=== PATIENT | female | born 1985 | race Two or more races ===

== ENCOUNTER → 2018-01-27 | Outpatient (CLI) | payer BC ==
[2018-01-27 19:02] LABS: BASO # 0.1 10^3/uL (0.0-0.2); BASO % 0.7 % (0.0-1.0); EOS # 0.1 10^3/uL (0.0-0.50); EOS % 1.5 % (0.0-3.0); HEMOGLOBIN 14.2 g/dl (12.0-15.5); IMMATURE GRANULOCYTE % 0.2 % (0-3.0); LYMPH % 21.1 % (24.0-44.0); MEAN CORPUSCULAR HEMOGLOBIN 29.4 pg (27.0-33.0); MEAN CORPUSCULAR HGB CONC 33.8 g/dl (32.0-36.5); MONO # 0.7 10^3/uL (0.0-0.8); MONO % 7.4 % (0.0-5.0); NEUTROPHILS # 6.5 10^3/uL (1.8-7.7); NEUTROPHILS % 69.1 % (36.0-66.0); PLATELET COUNT, AUTOMATED 273 10^3/uL (150-450); RED BLOOD COUNT 4.83 10^6/uL (4.00-5.40); RED CELL DISTRIBUTION WIDTH 12.5 % (11.5-14.5); WHITE BLOOD COUNT 9.4 10^3/uL (4.0-10.0)
[2018-01-27 19:11] LABS: ESTIMATED AVERAGE GLUCOSE 94 MG/DL (60-110); HEMOGLOBIN A1c 4.9 %
[2018-01-27 19:16] LABS: GLUCOSE CHALLENGE TEST 1 HOUR 124 MG/DL (LESS THAN 140)
[2018-01-27 20:29] LABS: CHLAMYDIA DNA AMPLIFICATION NEGATIVE (NEGATIVE); GC DNA AMPLIFICATION NEGATIVE (NEGATIVE)
[2018-01-29 10:56] LABS: RUBELLA IgG QUALITATIVE IMMUNE (IMMUNE)
[2018-01-29 11:03] LABS: HBsAg Prenatal NEGATIVE (NEGATIVE)
[2018-01-29 11:29] LABS: HIV 1&2 SCREEN CENTAUR NEGATIVE (NEGATIVE)
[2018-01-29 11:29] LABS: HEPATITIS C VIRUS ABY INDEX 0.1 INDEX (<0.8)
== END ==
LOC: M WUC 08:53
DX: Z34.81 Encounter for supervision of other normal pregnancy, first trimester (principal); Z3A.01 Less than 8 weeks gestation of pregnancy

== ENCOUNTER → 2018-03-19 | Outpatient (REF) | payer BC | LOC: M LAB REF 13:16 | DX: Z34.81 Encounter for supervision of other normal pregnancy, first trimester (principal) | CPT/HCPCS: 87086 ==

== ENCOUNTER → 2018-05-02 | Outpatient (CLI) | payer BC | LOC: M RAD 12:12 | DX: Z34.82 Encounter for supervision of other normal pregnancy, second trimester (principal); Z36.89 Encounter for other specified antenatal screening; Z3A.20 20 weeks gestation of pregnancy | CPT/HCPCS: 76811 ==

== ENCOUNTER → 2018-05-17 | Outpatient (CLI) | payer BC | LOC: M RAD 10:30 | DX: O32.2XX0 Maternal care for transverse and oblique lie, not applicable or unspecified (principal); Z36.89 Encounter for other specified antenatal screening; Z3A.23 23 weeks gestation of pregnancy | CPT/HCPCS: 76816 ==

== ENCOUNTER → 2018-06-16 | Outpatient (CLI) | payer BC ==
[~2018-06-16] MED LIST: ACET500C PO; IBUP1TAB7 PO; STUACAP PO
[2018-06-16 14:28] LABS: HEMOGLOBIN 12.9 g/dl (12.0-15.5); MEAN CORPUSCULAR HEMOGLOBIN 30.9 pg (27.0-33.0); MEAN CORPUSCULAR HGB CONC 33.9 g/dl (32.0-36.5); MEAN CORPUSCULAR VOLUME 91.1 fl (80.0-96.0); PLATELET COUNT, AUTOMATED 234 10^3/uL (150-450); RED BLOOD COUNT 4.17 10^6/uL (4.00-5.40); WHITE BLOOD COUNT 9.8 10^3/uL (4.0-10.0)
== END ==
LOC: M WUC 11:08
PROVIDERS: ATTEND Advanced Practice Midwife
DX: Z34.82 Encounter for supervision of other normal pregnancy, second trimester (principal); Z36.89 Encounter for other specified antenatal screening
CPT/HCPCS: 36415; 82950; 85027; 86850; 86900; 86901; J2790

== ENCOUNTER → 2018-08-24 | Outpatient (CLI) | payer BC ==
--- NOTE | 2018-08-24 13:19 | REP ---
Third trimester obstetric ultrasound for growth in a patient with gestational diabetes mellitus. There is a single intrauterine gestation in a vertex presentation. The heart rate is 141 beats per minute. The placenta is posterior and fundal without previa. The amniotic fluid volume subjectively is normal. The amniotic fluid index is 8.9 as a 7.2 - 23.1). Gestational age by the ultrasound today is 37 weeks 5 days/MAX 09/09/2018. Gestational age by the first ultrasound is 38 weeks 4 days/MAX 09/03/2018. Gestational age by LMP is 37 weeks 1 day , MAX /09/13/2018. weight is 3362 grams (7 pounds, 6 ounces). This is the 50th percentile by 38 weeks 4 days. This is the 69th percentile for 37 weeks 1 day . Umbilical artery Doppler assessment: S/D ratio 2.46 (2.30-3.30) Resistive Index 0.60 (0.59-0.75 Diastolic Velocity 21.1 (>10 cm/sec) Electronically Signed by Sidney Sifuentes MD 08/24/2018 01:11 P
== END ==
LOC: M SMT 08:27
PROVIDERS: ATTEND Advanced Practice Midwife
DX: O24.410 Gestational diabetes mellitus in pregnancy, diet controlled (principal); Z3A.37 37 weeks gestation of pregnancy

== ENCOUNTER 2018-09-05 22:49 | Inpatient (IN) | payer BC ==
[2018-09-06] MEDS ORDERED: RHOGAM 300 MCG (1500 IU) INJ (J2790) IM SCH (00:45)
[2018-09-06] MEDS ORDERED: LIDOCAINE 1% MDV 20ML VIAL INFIL ONE (00:45)
[2018-09-06] MEDS ORDERED: DIBUCAINE 1% OINTMENT 30GM TOP PRN (00:45)
[2018-09-06] MEDS ORDERED: METHYLERGONOVINE MALEATE 0.2 MG TAB PO PRN (00:45)
[2018-09-06] MEDS ORDERED: DOCUSATE SODIUM 100 MG CAP PO PRN (00:45)
[2018-09-06] MEDS ORDERED: MEASLES,MUMPS,RUBELLA VACCINE INJ (MMR-II) (90707) SC SCH (00:45)
[2018-09-06] MEDS ORDERED: OXYTOCIN INJ 10 UNITS/ML VIAL (J2590) IM ONE (00:45)
[2018-09-06] MEDS ORDERED: ACETAMINOPHEN 500 MG TAB PO PRN (00:45)
[2018-09-06 02:00] VITALS: BP 128/85
[2018-09-06 06:00] VITALS: BP 122/65
--- NOTE | 2018-09-06 07:18 | HPE ---
DATE OF ADMISSION: 09/05/2018 Silvana is a 33-year-old 2, para 1-0-0-1 at 38-6/7 weeks gestation with an EDC of 09/13/2018 based on first trimester ultrasound. She presents to labor and delivery with report of onset of uncomfortable contractions at 2135. She reports some scant bloody show. Denies leakage of fluid. The fetus has been active. She reports that contractions about every 3-[address] en route to the hospital. Her care was initiated at [facility] in the first trimester. course complicated by a history of gestational diabetes. Was not a diabetic with this . GBS bacteria and a history of a shoulder dystocia with macrosomic fetus in her prior . OBSTETRICAL HISTORY: March 2016, 38-5/7 weeks gestation, vaginal delivery following induction of labor due to macrosomic fetus, delivered a 9 pound 5 ounce female with a shoulder dystocia. OBSTETRIC LABS: O negative. Antibody screen positive. Pap normal, rubella immune, VDRL nonreactive, GBS positive in the urine culture. Hepatitis B surface antigen negative, HIV negative, chlamydia/gonorrhea negative. Hepatitis C antibody nonreactive. She did not have genetic serum screening labs drawn. Gestational diabetic screening elevated at 159 with a normal 3-hour glucose tolerance test. Fasting 72, 1-hour 62, 2-hour 169, 3-hour 116. GBS positive. PAST MEDICAL HISTORY: History of infertility. However, this was obtained spontaneously. Childhood varicella. SURGERIES: None. FAMILY HISTORY: Hypertension, heart disease, Bobby-Sachs disease, hydrocephalic. SOCIAL HISTORY: The patient is . Her is at bedside supportive. She is a nonsmoker. No alcohol. No drug use. No history of any sexually transmitted infections and denies history of abuse physical, sexual and emotional. ALLERGIES: No known drug allergies. CURRENT MEDICATIONS: - vitamins Upon arrival, she appears extremely uncomfortable. Temperature 98.2, pulse 87, respirations 18, BP 138/96. She is crying and moaning and writhing in the bed with her contractions. heart rate is 130 with moderate variability, positive excels, no decelerations observed. Contractions appear to be about every 2 minutes. Sterile vaginal exam upon arrival. Anterior lip, abdomen is gravid, cephalic presentation. Estimated weight 4400 grams. ASSESSMENT: Intrauterine at 38-6/7 weeks. heart rate category 1 transition. PLAN: Admit the patient to labor and delivery. Out of bed ad janel. Anticipate spontaneous vaginal delivery in second stage.
--- NOTE | 2018-09-06 07:18 | DN ---
DATE OF DELIVERY: 09/05/2018 Silvana is a 33-year-old, 2, para 2-0-0-2 now, who was admitted to labor and delivery in transition stage of labor. She coped with her labor physiological with much support and coaching. At some point, she had spontaneous rupture of membranes for clear fluid, estimated time 2130. She did reach full dilation at 2323. She pushed to a normal spontaneous vaginal delivery of a live male in occiput anterior (OA) position with restitution to right occiput transverse (ROT) position at 2341. There was a nuchal cord times one loose reduced manually at the time of delivery. There was a shoulder dystocia that was resolved with Slime maneuver. The corpus immediately followed. Mouth and nares were bulb suctioned and he was placed on the abdomen crying and active. The cord was clamped once pulsations ceased and cut by the father of the baby under my direction. Spontaneous expulsion of an intact placenta with three-vessel cord by Armenta mechanism was at 2349. Uterine hemostasis was achieved with uterine fundal massage and Pitocin 10 units IM. Perineum and vagina were inspected and noted to have a first-degree midline laceration. The laceration was repaired under local anesthesia with lidocaine and #3-0 Rapide in the usual fashion. Estimated blood loss 350 mL. male weighed 4409 grams, 9 pounds 14 ounces, and 9 and 9. Mom plans to bottle feed her son and the family have named him Chau Alfaro. At the close of delivery, lap counts, needle counts and instrument counts were correct and verified.
[2018-09-06] MEDS ORDERED: ADACEL/BOOSTRIX VACCINE (DIPHTH/PERTUSS/ACELL/TETANUS)0.5ML SYR (90715) IM ONE (09:00)
[2018-09-06] MEDS: IBUPROFEN 800 MG TAB PO PRN ×2 (09:20→17:32)
[2018-09-06] MEDS: PRENATAL VITAMINS CHEWABLE TABLET PO SCH (09:48)
[2018-09-06 18:00] VITALS: BP 131/88
[2018-09-07 06:00] VITALS: BP 128/74
[2018-09-07] MEDS: IBUPROFEN 800 MG TAB PO PRN (07:59)
[2018-09-07] MEDS: PRENATAL VITAMINS CHEWABLE TABLET PO SCH (07:59)
== END 2018-09-07 12:40 | disposition home or self-care (01) | DRG 560 ==
LOC: M LDO 22:49 → M LDI 23:18 → M OBS 09-06 01:30
PROVIDERS: ADMIT Advanced Practice Midwife; ATTEND Advanced Practice Midwife
PROC: 10E0XZZ Delivery of Products of Conception, External Approach (ICD-10-PCS; principal; 2018-09-05)
PROC: 0HQ9XZZ Repair Perineum Skin, External Approach (ICD-10-PCS; 2018-09-05)
DX: O99.824 Streptococcus B carrier state complicating childbirth (principal); O69.81X0 Labor and delivery complicated by cord around neck, without compression, not applicable or unspecified; Z3A.38 38 weeks gestation of pregnancy; Z37.0 Single live birth; O66.0 Obstructed labor due to shoulder dystocia; O70.0 First degree perineal laceration during delivery

== ENCOUNTER → 2018-10-22 | Outpatient (REF) | payer BC ==
[2018-10-22 13:23] LABS: HEMOGLOBIN 14.7 g/dl (12.0-15.5); MEAN CORPUSCULAR HEMOGLOBIN 30.1 pg (27.0-33.0); MEAN CORPUSCULAR HGB CONC 33.4 g/dl (32.0-36.5); MEAN CORPUSCULAR VOLUME 90.2 fl (80.0-96.0); PLATELET COUNT, AUTOMATED 258 10^3/uL (150-450); RED BLOOD COUNT 4.88 10^6/uL (4.00-5.40)
== END ==
LOC: M SFHCADAM 10:48
PROVIDERS: ATTEND Family Medicine
DX: Z00.00 Encounter for general adult medical examination without abnormal findings (principal)

== ENCOUNTER → 2018-12-18 | Outpatient (REF) | payer BC ==
[2018-12-21 00:06] LABS: HPV HYBRID CAPTURE II Negative (Negative)
== END ==
LOC: M LAB REF 13:18
PROVIDERS: ATTEND Advanced Practice Midwife
DX: Z12.4 Encounter for screening for malignant neoplasm of cervix (principal)
CPT/HCPCS: 87624; G0123

== ENCOUNTER 2019-02-02 07:26 | Emergency (ER) | payer BC, OTHER ==
[~2019-02-02] VITALS: Ht 162.6 cm; Wt 76.4 kg
[2019-02-02] MEDS ORDERED: ENSK1TAB3 PO (07:35)
[2019-02-02 08:37] LABS: HEMATOCRIT 44.1 % (36.0-47.0); HEMOGLOBIN 15.1 g/dl (12.0-15.5); MEAN CORPUSCULAR HEMOGLOBIN 29.2 pg (27.0-33.0); MEAN CORPUSCULAR HGB CONC 34.2 g/dl (32.0-36.5); MEAN CORPUSCULAR VOLUME 85.1 fl (80.0-96.0); PLATELET COUNT, AUTOMATED 290 10^3/uL (150-450); RED BLOOD COUNT 5.18 10^6/uL (4.00-5.40); WHITE BLOOD COUNT 10.4 10^3/uL (4.0-10.0)
[2019-02-02 09:05] LABS: HCG, SERUM QUALITATIVE NEGATIVE (NEGATIVE)
[2019-02-02 09:06] LABS: AMPHETAMINES LEVEL URINE NEGATIVE (NEGATIVE); BARBITURATES URINE NEGATIVE (NEGATIVE); BENZODIAZEPINES URINE NEGATIVE (NEGATIVE); CANNABINOIDS URINE NEGATIVE (NEGATIVE); COCAINE METABOLITE URINE NEGATIVE (NEGATIVE); METHADONE URINE NEGATIVE (NEGATIVE); OPIATES URINE NEGATIVE (NEGATIVE); PHENCYCLIDINE URINE NEGATIVE (NEGATIVE)
[2019-02-02 09:08] LABS: ALBUMIN 3.8 GM/DL (3.2-5.2); ALT/SGPT 38 U/L (12-78); BILIRUBIN,DIRECT 0.1 MG/DL (0.0-0.2); BILIRUBIN,TOTAL 0.4 MG/DL (0.2-1.0); BLOOD UREA NITROGEN 9 MG/DL (7-18); CALCIUM LEVEL 9.1 MG/DL (8.5-10.1); CARBON DIOXIDE LEVEL 28 MEQ/L (21-32); CHLORIDE LEVEL 106 MEQ/L (98-107); CREATININE FOR GFR 0.64 MG/DL (0.55-1.30); ETHYL ALCOHOL (ETHANOL) 0.004 % (0.000-0.010); GLOMERULAR FILTRATION RATE > 60.0 (>60); GLUCOSE, FASTING 102 MG/DL (70-100); POTASSIUM SERUM 3.7 MEQ/L (3.5-5.1); SALICYLATE LEVEL < 1.7 MG/DL (5.0-30.0); SODIUM LEVEL 142 MEQ/L (136-145); TOTAL PROTEIN 7.4 GM/DL (6.4-8.2)
[2019-02-02 09:09] LABS: ACETAMINOPHEN LEVEL < 2.0 UG/ML (10.0-30.0)
[2019-02-02 10:15] VITALS: BP 169/95
== END 2019-02-02 10:18 | disposition home or self-care (01) ==
LOC: M ED 07:26
DX: F32.9 Major depressive disorder, single episode, unspecified (principal); Z79.3 Long term (current) use of hormonal contraceptives
CPT/HCPCS: 36415; 80048; 80076; 80307; 84443; 84703; 85027; 99284; G0480

== ENCOUNTER 2019-02-03 04:52 | Emergency (ER) | payer OTHER ==
[~2019-02-03] VITALS: Ht 162.6 cm; Wt 77.0 kg
[~2019-02-03 04:52] MED LIST changes: +ENSK1TAB3 PO
[2019-02-03 05:33] LABS: HEMOGLOBIN 15.8 g/dl (12.0-15.5); MEAN CORPUSCULAR HEMOGLOBIN 30.3 pg (27.0-33.0); MEAN CORPUSCULAR HGB CONC 35.1 g/dl (32.0-36.5); MEAN CORPUSCULAR VOLUME 86.4 fl (80.0-96.0); PLATELET COUNT, AUTOMATED 285 10^3/uL (150-450); RED BLOOD COUNT 5.21 10^6/uL (4.00-5.40); WHITE BLOOD COUNT 11.7 10^3/uL (4.0-10.0)
[2019-02-03 06:07] LABS: ACETAMINOPHEN LEVEL < 2.0 UG/ML (10.0-30.0); ALBUMIN 3.9 GM/DL (3.2-5.2); ALT/SGPT 50 U/L (12-78); BILIRUBIN,DIRECT 0.2 MG/DL (0.0-0.2); BILIRUBIN,TOTAL 0.6 MG/DL (0.2-1.0); BLOOD UREA NITROGEN 8 MG/DL (7-18); CALCIUM LEVEL 9.3 MG/DL (8.5-10.1); CARBON DIOXIDE LEVEL 28 MEQ/L (21-32); CHLORIDE LEVEL 104 MEQ/L (98-107); CREATININE FOR GFR 0.64 MG/DL (0.55-1.30); ETHYL ALCOHOL (ETHANOL) < 0.003 % (0.000-0.010); GLOMERULAR FILTRATION RATE > 60.0 (>60); GLUCOSE, FASTING 102 MG/DL (70-100); SALICYLATE LEVEL < 1.7 MG/DL (5.0-30.0); SODIUM LEVEL 141 MEQ/L (136-145); TOTAL PROTEIN 7.6 GM/DL (6.4-8.2)
[2019-02-03 06:19] LABS: HCG, SERUM QUALITATIVE NEGATIVE (NEGATIVE)
[2019-02-03] MEDS ORDERED: LORazepam 2 MG TAB PO STA (07:00)
[2019-02-03] MEDS ORDERED: LORazepam 1 MG TAB As Ordered ONE (07:05)
[2019-02-03 07:47] LABS: AMPHETAMINES LEVEL URINE NEGATIVE (NEGATIVE); BARBITURATES URINE NEGATIVE (NEGATIVE); BENZODIAZEPINES URINE NEGATIVE (NEGATIVE); CANNABINOIDS URINE NEGATIVE (NEGATIVE); COCAINE METABOLITE URINE NEGATIVE (NEGATIVE); METHADONE URINE NEGATIVE (NEGATIVE); OPIATES URINE NEGATIVE (NEGATIVE); PHENCYCLIDINE URINE NEGATIVE (NEGATIVE)
--- NOTE | 2019-02-03 10:15 | ECGEPIP ---
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
[2019-02-03 19:07] VITALS: BP 153/94
--- NOTE | 2019-02-05 08:13 | REP ---
The the brain without IV contrast: There are no comparisons. There is no hemorrhage. There is no edema, mass effect or midline shift. Ventricles are normal size and midline. The visualized paranasal sinuses and mastoid air cells are clear. The cortical stripe is unremarkable. Impression: Negative CT study of the brain. Electronically Signed by Sidney Sifuentes MD 02/03/2019 12:54 P
== END 2019-02-03 19:14 ==
LOC: M ED 04:52
DX: F23 Brief psychotic disorder (principal); Z79.3 Long term (current) use of hormonal contraceptives
CPT/HCPCS: 36415; 70450; 80048; 80076; 80307; 84443; 84703; 85027; 93005; 99284; G0480

== ENCOUNTER → 2021-05-24 | Outpatient (REF) | payer OTHER | LOC: M SFHCWAGY 13:18 | PROVIDERS: ATTEND Advanced Practice Midwife | DX: Z12.4 Encounter for screening for malignant neoplasm of cervix (principal) | CPT/HCPCS: 87624; G0123 ==

== ENCOUNTER → 2021-12-02 | Outpatient (CLI) | payer OTHER ==
[2021-12-02 09:44] LABS: HEMATOCRIT 39.8 % (36.0-47.0); HEMOGLOBIN 12.7 g/dl (12.0-15.5); MEAN CORPUSCULAR HEMOGLOBIN 26.3 pg (27.0-33.0); MEAN CORPUSCULAR HGB CONC 31.9 g/dl (32.0-36.5); MEAN CORPUSCULAR VOLUME 82.4 fl (80.0-96.0); PLATELET COUNT, AUTOMATED 273 10^3/uL (150-450); RED BLOOD COUNT 4.83 10^6/uL (4.00-5.40); WHITE BLOOD COUNT 7.9 10^3/uL (4.0-10.0)
[2021-12-02 10:03] LABS: HEMOGLOBIN A1c 5.5 %
[2021-12-02 10:19] LABS: BLOOD UREA NITROGEN 10 MG/DL (7-18); CALCIUM LEVEL 9.3 MG/DL (8.5-10.1); CARBON DIOXIDE LEVEL 28 MEQ/L (21-32); CHLORIDE LEVEL 108 MEQ/L (98-107); CHOLESTEROL LEVEL 173 MG/DL (<200); CHOLESTEROL RISK RATIO 2.746 (<5); CREATININE FOR GFR 0.62 MG/DL (0.55-1.30); GLOMERULAR FILTRATION RATE > 60.0 (>60); GLUCOSE, FASTING 87 MG/DL (70-100); HDL CHOLESTEROL 63 MG/DL (>40); LDL CHOLESTEROL 80 MG/DL (<100); NON-HDL-C 110 MG/DL; POTASSIUM SERUM 4.2 MEQ/L (3.5-5.1); SODIUM LEVEL 142 MEQ/L (136-145); TRIGLYCERIDES LEVEL 150 MG/DL (<150)
== END ==
LOC: M WUC 08:17
PROVIDERS: ATTEND Physician Assistant
DX: Z13.1 Encounter for screening for diabetes mellitus (principal); Z13.220 Encounter for screening for lipoid disorders; F41.9 Anxiety disorder, unspecified; Z86.32 Personal history of gestational diabetes; E66.9 Obesity, unspecified

== ENCOUNTER → 2022-08-09 | Outpatient (REF) | payer OTHER | LOC: M SFHCWAGY 10:16 | PROVIDERS: ATTEND Advanced Practice Midwife | DX: Z12.4 Encounter for screening for malignant neoplasm of cervix (principal); Z77.9 Other contact with and (suspected) exposures hazardous to health | CPT/HCPCS: 87624; G0123 ==

== ENCOUNTER 2022-11-14 13:46 | Day surgery (SDC) | payer OTHER ==
[~2022-11-14] VITALS: Ht 162.6 cm; Wt 91.2 kg
[~2022-11-14 13:46] MED LIST changes: +ZOLO100T
[2022-11-14 14:45] LABS: HEMATOCRIT 42.8 % (36.0-47.0); HEMOGLOBIN 13.8 g/dl (12.0-15.5); MEAN CORPUSCULAR HGB CONC 32.2 g/dl (32.0-36.5); MEAN CORPUSCULAR VOLUME 83.6 fl (80.0-96.0); PLATELET COUNT, AUTOMATED 288 10^3/uL (150-450); RED BLOOD COUNT 5.12 10^6/uL (4.00-5.40); WHITE BLOOD COUNT 9.1 10^3/uL (4.0-10.0)
[2022-11-14] MEDS ORDERED: IBUP-1022 PO (15:41)
[2022-11-14] MEDS ORDERED: OXYC1TAB23 PO (15:41)
[2022-11-14] MEDS ORDERED: LIDOCAINE 2% 100MG/5ML SDV (FOR ANES.) As Ordered ONE (16:47)
[2022-11-14] MEDS ORDERED: MIDAZOLAM INJ 2MG/2ML VIAL As Ordered ONE (16:47)
[2022-11-14] MEDS ORDERED: fentaNYL 100 MCG/2 ML INJECTION As Ordered ONE ×2 (16:47→18:41)
[2022-11-14] MEDS ORDERED: propofoL 200 MG/20 ML VIAL As Ordered ONE (16:48)
[2022-11-14] MEDS ORDERED: ROCURONIUM BROMIDE 50MG/5ML VIAL As Ordered ONE (16:48)
[2022-11-14] MEDS ORDERED: ONDANSETRON 4MG 2ML VIAL As Ordered ONE (16:48)
[2022-11-14] MEDS ORDERED: ACETAMINOPHEN 1000MG 100ML IV BAG As Ordered ONE (18:00)
[2022-11-14] MEDS ORDERED: SUGAMMADEX SODIUM 500 MG/5 ML VIAL (BRIDION) As Ordered ONE (18:39)
[2022-11-14] MEDS ORDERED: KETOROLAC 60MG 2ML VIAL As Ordered ONE (18:43)
[2022-11-14] MEDS ORDERED: fentaNYL 100 MCG/2 ML INJECTION IV PRN (19:05)
[2022-11-14] MEDS ORDERED: ONDANSETRON 4MG 2ML VIAL IV PRN (19:05)
[2022-11-14] MEDS ORDERED: LR 1,000 ML IV SCH (19:05)
[2022-11-14] MEDS ORDERED: oxyCODONE 5MG TAB PO PRN (19:05)
[2022-11-14] MEDS ORDERED: HYDROMORPHONE HCL 0.5 MG/ 0.5 ML SYRINGE IV PRN (19:05)
[2022-11-14 19:45] VITALS: BP 132/87; TEMP 97.9; O2SAT 98
== END 2022-11-14 20:12 | disposition home or self-care (01) ==
LOC: M SDC 13:46
PROVIDERS: ATTEND Specialist
DX: Z30.2 Encounter for sterilization (principal); F41.9 Anxiety disorder, unspecified; Z79.899 Other long term (current) drug therapy; Z79.3 Long term (current) use of hormonal contraceptives
CPT/HCPCS: 36415; 58661; 81025; 85027; 88302; J0131; J1100; J1885; J2250; J2405; J3010; S0020

== ENCOUNTER → 2023-01-31 | Outpatient (REF) | payer OTHER ==
[~2023-01-31] MED LIST changes: +IBUP-1022 PO; +OXYC1TAB23 PO
[2023-01-31 13:28] LABS: BLOOD UREA NITROGEN 9 MG/DL (9-23); CALCIUM LEVEL 8.9 MG/DL (8.5-10.1); CARBON DIOXIDE LEVEL 30 MMOL/L (20-31); CHLORIDE LEVEL 107 MMOL/L (98-107); CREATININE FOR GFR 0.51 MG/DL (0.55-1.30); GLOMERULAR FILTRATION RATE > 60.0 (>60); GLUCOSE, FASTING 72 MG/DL (60-100); POTASSIUM SERUM 4.1 MMOL/L (3.5-5.1); SODIUM LEVEL 141 MMOL/L (136-145)
[2023-01-31 14:08] LABS: HEMOGLOBIN A1c 4.8 % (4.0-6.0)
== END ==
LOC: M SFHCADAM 08:01
PROVIDERS: ATTEND Physician Assistant
DX: Z86.32 Personal history of gestational diabetes (principal)

== ENCOUNTER → 2023-08-11 | Outpatient (REF) | payer OTHER | LOC: M SFHCWAGY 17:15 | PROVIDERS: ATTEND Advanced Practice Midwife | DX: Z12.4 Encounter for screening for malignant neoplasm of cervix (principal) | CPT/HCPCS: 87624; G0123 ==

== ENCOUNTER → 2024-09-06 | Outpatient (REF) | payer OTHER ==
[2024-09-10 11:54] LABS: HPV APTIMA Not Detected (Not Detected)
== END ==
LOC: M SFHCWAGY 13:30
PROVIDERS: ATTEND Advanced Practice Midwife
DX: Z12.4 Encounter for screening for malignant neoplasm of cervix (principal)
CPT/HCPCS: 87624; G0123

== ENCOUNTER → 2025-04-03 | Outpatient (CLI) | payer OTHER ==
[~2025-04-03] MED LIST changes: -IBUP-1022 PO; +IBUP600T42 PO
== END ==
LOC: M PLAIMG 08:20
PROVIDERS: ATTEND Physician Assistant
DX: H90.12 Conductive hearing loss, unilateral, left ear, with unrestricted hearing on the contralateral side (principal)